=== PATIENT | male | born 1965 | race Caucasian/White ===

== ENCOUNTER 2017-07-07 17:23 | Emergency (ER) | payer OTHER ==
[~2017-07-07] VITALS: Ht 162.6 cm; Wt 72.7 kg
[2017-07-07] MEDS ORDERED: PROPARACAINE/FLUORESCEIN SOD 0.5-0.25% 0.5 ML OPHTHALMIC SOLUTION OU ONE (18:30)
[2017-07-07] MEDS ORDERED: GENTAMICIN SULFATE 0.3% OPHTHALMIC SOLUTION 5 ML OS ONE (19:30)
[2017-07-07 20:14] VITALS: BP 137/89
== END 2017-07-07 20:21 | disposition home or self-care (01) ==
LOC: EMS 17:24
DX: H16.002 Unspecified corneal ulcer, left eye (principal); H10.212 Acute toxic conjunctivitis, left eye; F17.210 Nicotine dependence, cigarettes, uncomplicated
CPT/HCPCS: 99283